=== PATIENT | female | born 1970 ===

== ENCOUNTER 2020-05-10 13:51 | Observation (INO) ==
[2020-05-10 15:23] LABS: ABS Eosinophils 0.1 10^3/ul (0-0.6); ABS Lymphocytes 1.8 10^3/ul (1.0-4.8); ABS Monocytes 0.3 10^3/ul (0-0.8); ABS Neutrophils 3.1 10^3/ul (1.5-7.7); Eosinophil % 2.1 %; Hematocrit 36 % (35-47); Hemoglobin 12.3 g/dL (12.0-16.0); Lymphocyte % 33.5 %; Mean Corpuscular HGB Conc 34 g/dL (31-36); Mean Corpuscular Hemoglobin 34 pg (27-31); Mean Corpuscular Volume 100 fL (80-97); Mean Platelet Volume 7.8 fL (7.4-10.4); Platelet Count 153 10^3/uL (150-450); Red Blood Count 3.61 10^6 /uL (3.70-4.87); Red Cell Distribution Width 12 % (10-15); White Blood Count 5.3 10^3/uL (3.5-10.8)
[2020-05-10 16:12] LABS: ALT 21 U/L (7-52); AST 24 U/L (13-39); Albumin 4.4 g/dL (3.2-5.2); Albumin/Globulin Ratio 1.7 (1-3); Alkaline Phosphatase 41 U/L (34-104); Anion Gap 8 mmol/L (2-11); Blood Urea Nitrogen 17 mg/dL (6-24); CO2 Carbon Dioxide 23 mmol/L (22-32); Chloride 106 mmol/L (101-111); EGFR African American 121.5 (>60); EGFR Non-African American 100.4 (>60); Globulin 2.6 g/dL (2-4); Glucose 117 mg/dL (70-100); Potassium 3.5 mmol/L (3.5-5.0); Sodium 137 mmol/L (135-145)
[2020-05-10] MEDS ORDERED: NS 0.9% 1000 ml BAG 1,000 ML IV ONE (16:26)
[2020-05-10 16:57] LABS: Activated Partial Thrombo Time 23.4 seconds (26.0-38.0); INR 0.98 (0.82-1.09)
[2020-05-10] MEDS ORDERED: Iohexol 350 (CONTRAST) 500 ML MDV IV ONE (17:06)
[2020-05-10] MEDS ORDERED: Heparin DRIP 25,000 UNITS BAG 25,000 UNITS/500 ML BAG IV SCH ×2 (17:45→18:15)
[2020-05-10] MEDS ORDERED: Heparin 5000 UNITS/ML 1 mL VIAL IV SCH ×2 (18:00→19:00)
[2020-05-10 19:48] LABS: Blood Urea Nitrogen 14 mg/dL (6-24); EGFR African American 148.4 (>60); EGFR Non-African American 122.6 (>60)
[2020-05-10 19:53] LABS: Troponin I 0.09 ng/mL (<0.03)
[2020-05-10 22:08] LABS: Troponin I 0.08 ng/mL (<0.03)
[2020-05-11 06:41] LABS: ABS Eosinophils 0.2 10^3/ul (0-0.6); ABS Lymphocytes 2.5 10^3/ul (1.0-4.8); ABS Monocytes 0.3 10^3/ul (0-0.8); ABS Neutrophils 1.5 10^3/ul (1.5-7.7); Eosinophil % 4.3 %; Hematocrit 31 % (35-47); Hemoglobin 10.6 g/dL (12.0-16.0); Mean Corpuscular HGB Conc 35 g/dL (31-36); Mean Corpuscular Hemoglobin 34 pg (27-31); Mean Corpuscular Volume 99 fL (80-97); Mean Platelet Volume 7.7 fL (7.4-10.4); Platelet Count 130 10^3/uL (150-450); Red Blood Count 3.09 10^6 /uL (3.70-4.87); Red Cell Distribution Width 12 % (10-15); White Blood Count 4.5 10^3/uL (3.5-10.8)
[2020-05-11 11:44] VITALS: BP 129/73
== END 2020-05-11 14:20 | disposition home or self-care (01) ==
LOC: EDBD → ED 13:51 → MEDTELE 13:51
PROVIDERS: ADMIT Internal Medicine; ATTEND Internal Medicine